=== PATIENT | female | born 1970 | race Caucasian/White ===

== ENCOUNTER 2017-12-07 06:00 | Inpatient (IN) | payer OTHER ==
[2017-12-07] MEDS ORDERED: ALBUTEROL/IPRATROPIUM (NEB) 3 ML AMP HHN (08:00)
[2017-12-07] MEDS ORDERED: ONDANSETRON 4 MG INJ IV ×3 (08:00→22:30)
[2017-12-07] MEDS ORDERED: NACL 0.9% 3 ML SYG IV (08:00)
[2017-12-07] MEDS ORDERED: morphine 2 MG INJ IV ×2 (08:00→22:30)
[2017-12-07 08:45] LABS: ADD MAN DIFF? NO
[2017-12-07 08:50] LABS: WHITE BLOOD COUNT 16.2 10^3/ul (4.8-10.8)
[2017-12-07 08:50] LABS: BASOPHIL # 0.1 10^3/ul (0.0-0.1); BASOPHILS % 0.3 % (0.0-2.0); EOSINOPHILS # 0.1 10^3/ul (0.0-0.5); EOSINOPHILS % 0.5 % (0.0-7.0); HEMATOCRIT 33.2 % (37.0-47.0); HEMOGLOBIN 9.8 g/dl (12.0-16.0); LYMPHOCYTES # 1.5 10^3/ul (0.8-2.9); LYMPHOCYTES % 9.4 % (15.0-51.0); MEAN CORPUSCULAR HGB CONC 29.5 g/dl (32.0-37.0); MEAN CORPUSCULAR VOLUME 71.1 fl (82.0-101.0); MEAN PLATELET VOLUME 10.1 fl (7.4-10.4); MONOCYTE # 1.4 10^3/ul (0.3-0.9); MONOCYTES % 8.7 % (0.0-11.0); NEUTROPHILS % 80.5 % (39.0-77.0); PLATELET COUNT 320 10^3/UL (140-415); RED BLOOD COUNT 4.67 10^6/ul (4.20-5.40)
[2017-12-07] MEDS: FAMOTIDINE 20 MG INJ IV ×2 (09:15→21:00)
[2017-12-07] MEDS: DEXTROSE 5%-0.45% NACL 1,000 ML IV ×2 (09:17→17:40)
[2017-12-07 09:19] LABS: ALANINE AMINOTRANSFERASE 30 IU/L (13-69); ALBUMIN 3.7 g/dl (3.3-4.9); ALBUMIN/GLOBULIN RATIO 1.08; ALKALINE PHOSPHATASE 169 IU/L (42-121); ANION GAP 16 (8-16); ASPARTATE AMINO TRANSFERASE 25 IU/L (15-46); BILIRUBIN,INDIRECT 0.9 mg/dl (0-1.1); BILIRUBIN,TOTAL 0.9 mg/dl (0.2-1.3); BLOOD UREA NITROGEN 8 mg/dl (7-20); CALCIUM 8.2 mg/dl (8.4-10.2); CARBON DIOXIDE 22 mmol/L (21-31); CHLORIDE 106 mmol/L (97-110); CREATININE 0.42 mg/dl (0.44-1.00); GLUCOSE 239 mg/dl (70-220); LIPASE 45 U/L (23-300); MAGNESIUM 1.8 mg/dl (1.7-2.5); POTASSIUM 3.5 mmol/L (3.5-5.1); SODIUM 140 mmol/L (135-144); TOTAL PROTEIN 7.1 g/dl (6.1-8.1)
[2017-12-07] MEDS: PIPER-TAZO 3.375 GM IV (PMX) 100 ML IVPB ×3 (12:08→23:54)
[2017-12-07 14:39] LABS: IRON 24 ug/dl (35-150)
[2017-12-07 14:48] LABS: % IRON SATURATION 7 % SAT (22-52); TOTAL IRON BINDING CAPACITY 326 ug/dl (241-421)
[2017-12-07 15:15] LABS: FERRITIN 15.2 ng/ml (6.2-137.0)
[2017-12-07] MEDS ORDERED: KETOROLAC 30 MG INJ IV (16:00)
[2017-12-07] MEDS ORDERED: ROCURONIUM 50 MG INJ (20:43)
[2017-12-07] MEDS ORDERED: MIDAZOLAM 1 MG/ML 2 ML INJ (20:43)
[2017-12-07] MEDS ORDERED: ROPIVACAINE 0.5 % 30 ML VIAL (20:43)
[2017-12-07] MEDS ORDERED: PROPOFOL 20 ML (20:43)
[2017-12-07] MEDS ORDERED: EPHEDrine SULFATE 50 MG/5 ML SYG IV (21:00)
[2017-12-07] MEDS ORDERED: HYDROmorphONE (0.2 MG/ML) 10ML SYG IV ×3 (21:00)
[2017-12-07] MEDS ORDERED: FENTAnyl 50 MCG/ML VIAL IV ×3 (21:00)
[2017-12-07] MEDS ORDERED: DIPHENHYDRAMINE 50 MG INJ IV (21:00)
[2017-12-07] MEDS ORDERED: METOCLOPRAMIDE 10 MG INJ IV (21:00)
[2017-12-07] MEDS ORDERED: LABETALOL HCL 20MG INJ IV (21:00)
[2017-12-07] MEDS ORDERED: MEPERIDINE 25 MG INJ IV (21:00)
[2017-12-07] MEDS ORDERED: OXYCODONE/ACETAMINOPHEN (5/325) TAB PO ×3 (21:00→22:30)
[2017-12-07] MEDS ORDERED: CEFAZOLIN 1 GM INJ (21:11)
[2017-12-07] MEDS ORDERED: ONDANSETRON 4 MG INJ (21:25)
[2017-12-07] MEDS ORDERED: METOCLOPRAMIDE 10 MG INJ (21:25)
[2017-12-07] MEDS ORDERED: KETOROLAC 30 MG INJ (21:25)
[2017-12-07] MEDS ORDERED: DEXAMETHASONE 4 MG/ML 1 ML INJ (21:25)
[2017-12-07] MEDS ORDERED: ACETAMINOPHEN 1000MG/100ML IV 100 ML (21:25)
[2017-12-07] MEDS ORDERED: SUGAMMADEX SODIUM 200 MG/2 ML VIAL IV (21:31)
[2017-12-07] MEDS ORDERED: LABETALOL HCL 20MG INJ (21:32)
[2017-12-08] MEDS: DEXTROSE 5%-0.45% NACL 1,000 ML IV (03:53)
[2017-12-08] MEDS: PIPER-TAZO 3.375 GM IV (PMX) 100 ML IVPB ×4 (05:11→23:30)
[2017-12-08 06:10] LABS: ADD MAN DIFF? NO
[2017-12-08 06:20] LABS: WHITE BLOOD COUNT 22.2 10^3/ul (4.8-10.8)
[2017-12-08 06:20] LABS: ABNORMAL IP MESSAGE 1; BASOPHIL # 0.1 10^3/ul (0.0-0.1); BASOPHILS % 0.2 % (0.0-2.0); HEMATOCRIT 33.6 % (37.0-47.0); HEMOGLOBIN 9.4 g/dl (12.0-16.0); LYMPHOCYTES # 0.8 10^3/ul (0.8-2.9); LYMPHOCYTES % 3.6 % (15.0-51.0); MEAN CORPUSCULAR HEMOGLOBIN 20.5 pg (29.0-33.0); MEAN CORPUSCULAR VOLUME 73.2 fl (82.0-101.0); MEAN PLATELET VOLUME 10.2 fl (7.4-10.4); MONOCYTE # 1.2 10^3/ul (0.3-0.9); MONOCYTES % 5.4 % (0.0-11.0); NEUTROPHIL # 19.9 10^3/ul (1.6-7.5); NEUTROPHILS % 89.8 % (39.0-77.0); PLATELET COUNT 359 10^3/UL (140-415); RED BLOOD COUNT 4.59 10^6/ul (4.20-5.40); RED CELL DISTRIBUTION WIDTH 17.3 % (11.5-14.5)
[2017-12-08 06:25] LABS: POSITIVE DIFF @See below
[2017-12-08 06:47] LABS: ALANINE AMINOTRANSFERASE 206 IU/L (13-69); ALBUMIN 3.4 g/dl (3.3-4.9); ALKALINE PHOSPHATASE 350 IU/L (42-121); ANION GAP 20 (8-16); ASPARTATE AMINO TRANSFERASE 422 IU/L (15-46); BILIRUBIN,INDIRECT 0.5 mg/dl (0-1.1); BILIRUBIN,TOTAL 2.4 mg/dl (0.2-1.3); BLOOD UREA NITROGEN 6 mg/dl (7-20); CALCIUM 8.6 mg/dl (8.4-10.2); CARBON DIOXIDE 17 mmol/L (21-31); CHLORIDE 109 mmol/L (97-110); CREATININE 0.51 mg/dl (0.44-1.00); GLUCOSE 296 mg/dl (70-220); MAGNESIUM 1.9 mg/dl (1.7-2.5); PHOSPHORUS 4.1 mg/dl (2.5-4.9); POTASSIUM 3.6 mmol/L (3.5-5.1); SODIUM 142 mmol/L (135-144); TOTAL PROTEIN 6.8 g/dl (6.1-8.1)
[2017-12-08] MEDS ORDERED: BUPIVACAINE 0.25%/EPI (MDV) 50 ML VIAL INJ (07:00)
[2017-12-08] MEDS: FAMOTIDINE 20 MG INJ IV (09:04)
[2017-12-08] MEDS: SOD CHLORIDE 0.9% 1,000 ML IV (14:00)
[2017-12-08] MEDS: OXYCODONE/ACETAMINOPHEN (5/325) TAB PO (16:46)
[2017-12-08] MEDS: FERROUS SULFATE (EC) 325 MG TAB PO (21:20)
[2017-12-08] MEDS: FAMOTIDINE 20 MG TAB PO (21:20)
[2017-12-08] MEDS: DOCUSATE SODIUM 100 MG CAP PO (21:20)
[2017-12-09] MEDS: ACETAMINOPHEN 325 MG TAB PO ×3 (04:31→23:30)
[2017-12-09] MEDS: PIPER-TAZO 3.375 GM IV (PMX) 100 ML IVPB ×4 (05:18→23:29)
[2017-12-09 07:30] LABS: ADD MAN DIFF? NO
[2017-12-09 07:33] LABS: WHITE BLOOD COUNT 11.7 10^3/ul (4.8-10.8)
[2017-12-09 07:33] LABS: BASOPHILS % 0.3 % (0.0-2.0); EOSINOPHILS % 0.3 % (0.0-7.0); HEMATOCRIT 29.3 % (37.0-47.0); HEMOGLOBIN 8.5 g/dl (12.0-16.0); LYMPHOCYTES # 0.7 10^3/ul (0.8-2.9); LYMPHOCYTES % 6.3 % (15.0-51.0); MEAN CORPUSCULAR HEMOGLOBIN 20.4 pg (29.0-33.0); MEAN CORPUSCULAR VOLUME 70.3 fl (82.0-101.0); MEAN PLATELET VOLUME 10.3 fl (7.4-10.4); MONOCYTE # 0.8 10^3/ul (0.3-0.9); MONOCYTES % 6.5 % (0.0-11.0); NEUTROPHILS % 85.9 % (39.0-77.0); PLATELET COUNT 355 10^3/UL (140-415); RED BLOOD COUNT 4.17 10^6/ul (4.20-5.40); RED CELL DISTRIBUTION WIDTH 17.5 % (11.5-14.5)
[2017-12-09 07:57] LABS: ALANINE AMINOTRANSFERASE 182 IU/L (13-69); ALBUMIN 3.2 g/dl (3.3-4.9); ALBUMIN/GLOBULIN RATIO 0.94; ALKALINE PHOSPHATASE 384 IU/L (42-121); ANION GAP 15 (8-16); ASPARTATE AMINO TRANSFERASE 186 IU/L (15-46); BILIRUBIN,INDIRECT 0.9 mg/dl (0-1.1); BILIRUBIN,TOTAL 1.7 mg/dl (0.2-1.3); BLOOD UREA NITROGEN 4 mg/dl (7-20); CALCIUM 7.8 mg/dl (8.4-10.2); CARBON DIOXIDE 19 mmol/L (21-31); CHLORIDE 107 mmol/L (97-110); CREATININE 0.47 mg/dl (0.44-1.00); GLUCOSE 226 mg/dl (70-220); SODIUM 138 mmol/L (135-144); TOTAL PROTEIN 6.6 g/dl (6.1-8.1)
[2017-12-09 08:02] LABS: POTASSIUM 2.9 mmol/L (3.5-5.1)
[2017-12-09] MEDS: SOD CHLORIDE 0.9% 1,000 ML IV ×2 (08:28→10:28)
[2017-12-09] MEDS: POTASSIUM CHLORIDE (SR) 20 MEQ TAB PO (08:30)
[2017-12-09] MEDS: DOCUSATE SODIUM 100 MG CAP PO ×2 (08:30→20:45)
[2017-12-09] MEDS: FERROUS SULFATE (EC) 325 MG TAB PO ×2 (08:30→20:45)
[2017-12-09 09:52] LABS: ADD UMIC YES; UR ASCORBIC ACID NEGATIVE (NEGATIVE); UR BACTERIA FEW /HPF (NONE SEEN); UR BILIRUBIN (Dip) NEGATIVE (NEGATIVE); UR BLOOD (Dip) 3+ mg/dL (NEGATIVE); UR BUDDING YEAST MODERATE /HPF (NONE SEEN); UR CLARITY SLIGHTLY CLOUDY (CLEAR); UR COLOR AMBER (YELLOW); UR GLUCOSE (Dip) 3+ mg/dL (NEGATIVE); UR KETONES (Dip) 2+ mg/dL (NEGATIVE); UR LEUKOCYTE ESTERASE (Dip) TRACE Leu/ul (NEGATIVE); UR MUCUS FEW /HPF (NONE SEEN); UR NITRITE (Dip) NEGATIVE (NEGATIVE); UR RBC 98 /HPF (0-5); UR SPECIFIC GRAVITY (Dip) 1.021 (1.003-1.030); UR SQUAMOUS EPITHELIAL CELL MODERATE /HPF (FEW); UR TOTAL PROTEIN (Dip) 2+ mg/dl (NEGATIVE); UR UROBILINOGEN (Dip) 2+ mg/dL (NEGATIVE); UR WBC 99 /HPF (0-5)
[2017-12-09] MEDS: POTASSIUM CHLORIDE 100 ML IVPB ×2 (10:28→14:02)
[2017-12-09] MEDS ORDERED: morphine LIQ (10 MG/5 ML) CUP PO (18:00)
[2017-12-09] MEDS: FAMOTIDINE 20 MG TAB PO (20:45)
[2017-12-10 05:55] LABS: ADD MAN DIFF? NO
[2017-12-10] MEDS: SOD CHLORIDE 0.9% 1,000 ML IV ×2 (05:59→17:05)
[2017-12-10] MEDS: PIPER-TAZO 3.375 GM IV (PMX) 100 ML IVPB ×3 (05:59→17:05)
[2017-12-10 06:03] LABS: BASOPHILS % 0.5 % (0.0-2.0); EOSINOPHILS # 0.2 10^3/ul (0.0-0.5); EOSINOPHILS % 2.3 % (0.0-7.0); HEMATOCRIT 28.6 % (37.0-47.0); HEMOGLOBIN 8.6 g/dl (12.0-16.0); LYMPHOCYTES # 1.2 10^3/ul (0.8-2.9); LYMPHOCYTES % 15.5 % (15.0-51.0); MEAN CORPUSCULAR HEMOGLOBIN 20.9 pg (29.0-33.0); MEAN CORPUSCULAR HGB CONC 30.1 g/dl (32.0-37.0); MEAN CORPUSCULAR VOLUME 69.6 fl (82.0-101.0); MEAN PLATELET VOLUME 10.1 fl (7.4-10.4); MONOCYTE # 0.9 10^3/ul (0.3-0.9); MONOCYTES % 11.1 % (0.0-11.0); NEUTROPHIL # 5.4 10^3/ul (1.6-7.5); NEUTROPHILS % 69.1 % (39.0-77.0); PLATELET COUNT 340 10^3/UL (140-415); RED BLOOD COUNT 4.11 10^6/ul (4.20-5.40); RED CELL DISTRIBUTION WIDTH 17.5 % (11.5-14.5)
[2017-12-10 06:03] LABS: WHITE BLOOD COUNT 7.8 10^3/ul (4.8-10.8)
[2017-12-10 06:24] LABS: ALANINE AMINOTRANSFERASE 179 IU/L (13-69); ALBUMIN 3.2 g/dl (3.3-4.9); ALBUMIN/GLOBULIN RATIO 0.91; ALKALINE PHOSPHATASE 458 IU/L (42-121); ANION GAP 14 (8-16); ASPARTATE AMINO TRANSFERASE 148 IU/L (15-46); BILIRUBIN,INDIRECT 0.6 mg/dl (0-1.1); BILIRUBIN,TOTAL 0.6 mg/dl (0.2-1.3); BLOOD UREA NITROGEN 3 mg/dl (7-20); CARBON DIOXIDE 25 mmol/L (21-31); CHLORIDE 106 mmol/L (97-110); CREATININE 0.48 mg/dl (0.44-1.00); GLUCOSE 223 mg/dl (70-220); POTASSIUM 3.4 mmol/L (3.5-5.1); SODIUM 142 mmol/L (135-144); TOTAL PROTEIN 6.7 g/dl (6.1-8.1)
[2017-12-10 07:31] LABS: MAGNESIUM 1.9 mg/dl (1.7-2.5)
[2017-12-10] MEDS: DOCUSATE SODIUM 100 MG CAP PO ×2 (10:53→20:29)
[2017-12-10] MEDS: ACETAMINOPHEN 325 MG TAB PO (10:53)
[2017-12-10] MEDS: FERROUS SULFATE (EC) 325 MG TAB PO ×2 (10:53→20:29)
[2017-12-10] MEDS: POTASSIUM CHLORIDE (SR) 20 MEQ TAB PO (13:21)
[2017-12-10] MEDS: FAMOTIDINE 20 MG TAB PO (20:29)
[2017-12-11] MEDS: PIPER-TAZO 3.375 GM IV (PMX) 100 ML IVPB ×3 (00:07→12:03)
[2017-12-11 06:02] LABS: ADD MAN DIFF? NO
[2017-12-11 06:09] LABS: WHITE BLOOD COUNT 8.5 10^3/ul (4.8-10.8)
[2017-12-11 06:09] LABS: BASOPHIL # 0.1 10^3/ul (0.0-0.1); BASOPHILS % 0.6 % (0.0-2.0); EOSINOPHILS # 0.2 10^3/ul (0.0-0.5); EOSINOPHILS % 2.7 % (0.0-7.0); HEMATOCRIT 28.8 % (37.0-47.0); HEMOGLOBIN 8.6 g/dl (12.0-16.0); LYMPHOCYTES # 1.5 10^3/ul (0.8-2.9); LYMPHOCYTES % 18.1 % (15.0-51.0); MEAN CORPUSCULAR HEMOGLOBIN 20.5 pg (29.0-33.0); MEAN CORPUSCULAR HGB CONC 29.9 g/dl (32.0-37.0); MEAN CORPUSCULAR VOLUME 68.7 fl (82.0-101.0); MEAN PLATELET VOLUME 10.1 fl (7.4-10.4); MONOCYTE # 1.1 10^3/ul (0.3-0.9); MONOCYTES % 12.3 % (0.0-11.0); NEUTROPHIL # 5.6 10^3/ul (1.6-7.5); NEUTROPHILS % 65.4 % (39.0-77.0); PLATELET COUNT 368 10^3/UL (140-415); RED BLOOD COUNT 4.19 10^6/ul (4.20-5.40); RED CELL DISTRIBUTION WIDTH 17.6 % (11.5-14.5)
[2017-12-11 06:46] LABS: ALANINE AMINOTRANSFERASE 133 IU/L (13-69); ALBUMIN 3.1 g/dl (3.3-4.9); ALBUMIN/GLOBULIN RATIO 0.83; ALKALINE PHOSPHATASE 428 IU/L (42-121); ANION GAP 15 (8-16); ASPARTATE AMINO TRANSFERASE 72 IU/L (15-46); BILIRUBIN,INDIRECT 0.4 mg/dl (0-1.1); BILIRUBIN,TOTAL 0.4 mg/dl (0.2-1.3); BLOOD UREA NITROGEN 5 mg/dl (7-20); CALCIUM 8.2 mg/dl (8.4-10.2); CARBON DIOXIDE 24 mmol/L (21-31); CHLORIDE 107 mmol/L (97-110); CREATININE 0.46 mg/dl (0.44-1.00); GLUCOSE 190 mg/dl (70-220); POTASSIUM 3.5 mmol/L (3.5-5.1); SODIUM 142 mmol/L (135-144); TOTAL PROTEIN 6.8 g/dl (6.1-8.1)
[2017-12-11 07:15] LABS: HEPATITIS B SURFACE ANTIGEN NEGATIVE (NEGATIVE)
[2017-12-11 07:32] LABS: HEPATITIS C VIRAL ANTIBODY NEGATIVE (NEGATIVE)
[2017-12-11 07:33] LABS: HEPATITIS B SURFACE ANTIBODY NEGATIVE (NEGATIVE)
[2017-12-11] MEDS: SOD CHLORIDE 0.9% 1,000 ML IV (08:13)
[2017-12-11] MEDS: FERROUS SULFATE (EC) 325 MG TAB PO (08:14)
[2017-12-11] MEDS: DOCUSATE SODIUM 100 MG CAP PO (08:14)
== END 2017-12-11 18:25 | disposition home or self-care (01) | DRG 854 ==
LOC: PP2 06:00
PROC: 0FT44ZZ Resection of Gallbladder, Percutaneous Endoscopic Approach (ICD-10-PCS; principal; 2017-12-07 18:30)
DX: A41.9 Sepsis, unspecified organism (principal); K80.12 Calculus of gallbladder with acute and chronic cholecystitis without obstruction; B37.49 Other urogenital candidiasis; E66.9 Obesity, unspecified; Z68.38 Body mass index [BMI] 38.0-38.9, adult; D50.9 Iron deficiency anemia, unspecified; E87.6 Hypokalemia; R74.8 Abnormal levels of other serum enzymes; Z71.3 Dietary counseling and surveillance
CPT/HCPCS: 71045; 74181; 76705; 80053; 81001; 82728; 83540; 83690; 83735; 84100; 84703; 85025; 86706; 86709; 86803; 87040; 87070; 87086; 87340; 88304